=== PATIENT | male | born 1985 | race American Indian/Alaskan Native ===

== ENCOUNTER 2020-09-30 11:59 | Emergency (ER) | payer SELFPAY ==
[2020-09-30] MEDS ORDERED: levETIRAcetam 1000 MG/NS 0.75% 1,000 MG/100 ML BAG IV ONE ×2 (12:29→16:07)
[2020-09-30] MEDS ORDERED: ONDANSETRON 4 MG/2 ML INJ IV ONE (12:44)
--- NOTE | 2020-09-30 13:17 | Emergency Department Report ---
ED Seizure HPI - General Chief Complaint: Seizure Stated Complaint: SEIZURE Time Seen by Provider: 09/30/20 12:24 Source: patient, EMS Mode of arrival: Ambulatory Limitations: No Limitations - History of Present Illness Initial Comments: 34-year-old male with past medical history of 1 seizure in the past presents to the hospital with seizures. Seizure occurred after having sex. He has not followed up or initiated medication since his last seizure. Nurse reports to me that patient was initially talking upon ED arrival. He was asking for a blanket and other things intermittently. Prior to my evaluation. Patient then vomited and became combative with ED staff requiring restraints. The time of my assessment patient is sleeping, arousable, but then goes back to sleep and will not answer any questions or follow commands. Mother also reports that this is the 1 year anniversary of his father's and patient is intermittently crying stating that he is disappointing his family. additional hpi obtained from mom and girlfriend at 4:30pm Thursday were informed of patient's diagnosis and plan for transfer Mom states to her knowledge no previous history of seizures Case discussed with girlfriend/cindy: She states that patient had a dj vu episode 2 months ago which she read could be seizures. Yesterday he complained of a "cluster" headache which improved with [id number] medication. Patient also suspected he had a headache and possible unwitnessed seizure after ejaculating with masturbation. Today while he and girlfriend were having sex after he ejaculated he passed out and seized but was able to speak and was oriented - Related Data Allergies Allergy/AdvReac Type Severity Reaction Status Date / Time No Known Allergies Allergy Unverified 09/30/20 13:27 ED Review of Systems ROS: Stated complaint: SEIZURE Other details as noted in HPI Comment: Unobtainable due to pts medical conditions ED Past Medical Hx - Past Medical History Previous Medical History?: Yes - Surgical History Past Surgical History?: No - Social History Smoking Status: Unknown if ever smoked Substance Use Type: None ED Physical Exam - General Limitations: No Limitations - Other Other exam information: General: No acute distress Head: Atraumatic Eyes: normal appearance ENT: Moist mucous membranes Neck: Normal appearance, no midline tenderness Chest: Clear to auscultation bilaterally CV: Regular rate and rhythm Abdomen: Soft, normal bowel sounds, nontender, nondistended, no rebound or guarding Back: Normal inspection Extremity: Normal inspection, full range of motion Neuro: Drowsy, opens eyes to tactile stimulation, 5/5 upper and lower extremity strength. Initial GCS E3 V4 and 5 = 12 Psych: Intermittently confused, combative, not following commands Skin: No rash ED Course Vital Signs 09/30/20 09/30/20 09/30/20 12:26 12:47 15:55 Temperature 98.1 F Pulse Rate 86 86 Respiratory 18 18 Rate Blood Pressure 138/81 157/104 Blood Pressure 136/82 [Right] O2 Sat by Pulse 100 100 100 Oximetry 09/30/20 16:14 Temperature 98.2 F Pulse Rate 55 L Respiratory 20 Rate Blood Pressure Blood Pressure 148/96 [Right] O2 Sat by Pulse 100 Oximetry - Reevaluation(s) Reevaluation #1: 09/30/20 15:20 Patient was observed for several hours given that he had a seizure for possible prolonged postictal state. Patient received Keppra and Zofran without any further seizure activity. When I went to reassess patient he still remained altered, agitated with snoring respirations and not following commands, and try ing to loosen restraints. GCS E2 V3 and = 10. therefore CT head ordered which shows a brain bleed at this time. I am awaiting CT report. Patient will be prepped for intubation while awaiting radiology callback due to significant CT findings and declining GCS score. - Consultations Consultation #1: 09/30/20 3:48 PM [facility] called. No beds. Will page Dr. Dunne neurosurgeon to see if patient can be accommodate 3:50 PM: Case discussed with [facility] transfer service. At 3:58 PM I was conference with neurosurgeon Dr. Sepulveda and neuro coding analyst Dr. Dow. Recommendation to keep blood pressure less than 160. Amicar not recommended at this time. They have accepted patient pending bed availability 4:03 PM received call back from Dr. Smith neurosurgeon at [facility]. He has accepted patient for to the ED. Recommends 100 g of mannitol, an additional gram of Keppra, and to keep systolic blood pressure less than 140 and recommends Cardene as needed. Case was also discussed with ED attending Dr. Arana - Intubation Time Out Performed: Yes Sedative: Etomidate Mg Given: 20 Paralytic: Rocuronium Mg Given: 120 Laryngoscope: other (glidescope) Size: 4 ET Tube Size: 7.5 Tube Secured Depth (cm): 23 Tube Secured Location: teeth Tube Placement Confirmation: visualized tube passing t, equal breath sounds bilat, no breath sounds over epi, confirmation by capnometr Patient Tolerated Procedure: well Intubation Complications: none Additional Comments: ET tube 1 chest x-ray right at the tip of the ruddy instructed respiratory therapist to pull back to 23 ED Medical Decision Making - Lab Data Result diagrams: 09/30/20 13:08 09/30/20 13:08 Lab Results 09/30/20 09/30/20 09/30/20 Range/Units 12:25 13:08 13:08 WBC 7.0 (4.5-11.0) K/mm3 RBC 5.57 H (3.65-5.03) M/mm3 Hgb 15.0 (11.8-15.2) gm/dl Hct 45.2 (35.5-45.6) % MCV 81 L (84-94) fl MCH 27 L (28-32) pg MCHC 33 (32-34) % RDW 14.1 (13.2-15.2) % Plt Count 181 (140-440) K/mm3 Lymph % (Auto) 42.0 H (13.4-35.0) % [place] % (Auto) 11.2 H (0.0-7.3) % Eos % (Auto) 1.7 (0.0-4.3) % Baso % (Auto) 0.8 (0.0-1.8) % Lymph # (Auto) 2.9 (1.2-5.4) K/mm3 [place] # (Auto) 0.8 (0.0-0.8) K/mm3 Eos # (Auto) 0.1 (0.0-0.4) K/mm3 Baso # (Auto) 0.1 (0.0-0.1) K/mm3 Seg Neutrophils % 44.3 (40.0-70.0) % Seg Neutrophils # 3.1 (1.8-7.7) K/mm3 PT (12.2-14.9) Sec. INR (0.87-1.13) APTT (24.2-36.6) Sec. Sodium 141 (137-145) mmol/L Potassium 3.9 (3.6-5.0) mmol/L Chloride 102.6 (98-107) mmol/L Carbon Dioxide 21 L (22-30) mmol/L Anion Gap 21 mmol/L BUN 10 (9-20) mg/dL Creatinine 0.9 (0.8-1.3) mg/dL Estimated GFR > 60 ml/min BUN/Creatinine Ratio 11 % Glucose 144 H (75-100) mg/dL POC Glucose 125 H (70-105) mg/dL Calcium 9.4 (8.4-10.2) mg/dL Magnesium 1.80 (1.7-2.3) mg/dL 09/30/20 Range/Units 15:46 WBC (4.5-11.0) K/mm3 RBC (3.65-5.03) M/mm3 Hgb (11.8-15.2) gm/dl Hct (35.5-45.6) % MCV (84-94) fl MCH (28-32) pg MCHC (32-34) % RDW (13.2-15.2) % Plt Count (140-440) K/mm3 Lymph % (Auto) (13.4-35.0) % [place] % (Auto) (0.0-7.3) % Eos % (Auto) (0.0-4.3) % Baso % (Auto) (0.0-1.8) % Lymph # (Auto) (1.2-5.4) K/mm3 [place] # (Auto) (0.0-0.8) K/mm3 Eos # (Auto) (0.0-0.4) K/mm3 Baso # (Auto) (0.0-0.1) K/mm3 Seg Neutrophils % (40.0-70.0) % Seg Neutrophils # (1.8-7.7) K/mm3 PT 13.0 (12.2-14.9) Sec. INR 1.00 (0.87-1.13) APTT 28.2 (24.2-36.6) Sec. Sodium (137-145) mmol/L Potassium (3.6-5.0) mmol/L Chloride (98-107) mmol/L Carbon Dioxide (22-30) mmol/L Anion Gap mmol/L BUN (9-20) mg/dL Creatinine (0.8-1.3) mg/dL Estimated GFR ml/min BUN/Creatinine Ratio % Glucose (75-100) mg/dL POC Glucose (70-105) mg/dL Calcium (8.4-10.2) mg/dL Magnesium (1.7-2.3) mg/dL - EKG Data -: EKG Interpreted by Nm EKG shows normal: sinus rhythm, ST-T waves (No STEMI) Rate: bradycardia (58) - Radiology Data Radiology results: report reviewed, image reviewed (Chest x-ray reviewed report not available at time of transfer. ET tube right at the ruddy tip and pulled back from 24-23) NONENHANCED CT SCAN OF THE HEAD: INDICATION / CLINICAL INFORMATION: 34 years Male; seizure, confusion. TECHNIQUE: Routine CT head without contrast. All CT scans at this location are performed using CT dose reduction for ALARA by means of automated exposure control. COMPARISON: None. FINDINGS: BRAIN / INTRACRANIAL CONTENTS: Abnormal MRI scan Significant intraventricular hemorrhage on the right side; subarachnoid hemorrhage; hydrocephalus; appears to be right basal ganglia hemorrhage, Given the age, aneurysm, arteriovenous malformation and drugs would be considerations CRANIOCERVICAL JUNCTION: No significant abnormality. ORBITS: No significant abnormality of visualized orbits. SINUSES / MASTOIDS: No significant abnormality of the visualized paranasal sinuses or mastoid air cells. ADDITIONAL FINDINGS: None. IMPRESSION: Significant ventricular hemorrhage on the right side and diffuse subarachnoid hemorrhage; hydrocephalus - Medical Decision Making 34-year-old male with a past medical history of previous seizure presents to the hospital with a seizure after sexual intercourse. Patient had episode nausea vomiting in the ED. Patient treated with Keppra and Zofran. Patient did require physical restraints due to confusion and combativeness. Due to prolonged postictal state CT head was performed and shows acute hemorrhage with hydrocephalus. Patient intubated for airway protection and just declining GCS with significant CT head findings (GCS declined from 12-10). Patient treated with 2 g of Keppra, Zofran, mannitol, propofol drip for sedation with Cardene on standby for additional BP control as per neurosurgery recommendation Patient's mother and girlfriend were informed of patient's diagnosis and plan for transfer to [facility]. Mother in ED and allowed to come to bedside prior to transfer Critical Care Time: Yes Critical care time in (mins) excluding proc time.: 65 Critical care attestation.: If time is entered above; I have spent that time in minutes in the direct care of this critically ill patient, excluding procedure time. ED Disposition Clinical Impression: Seizure, Post-ictal confusion, Intracerebral hemorrhage, Hydrocephalus, Mental status alteration Disposition: [id number]/TX-[id number] ANOTHER TYPE HLTHCARE Is pt being admited?: No Condition: Stable Referrals: PRIMARY CARE, [Primary Care Provider] - 3-5 Days
[2020-09-30 13:43] LABS: Basophils # (Auto) 0.1 K/mm3 (0.0-0.1); Basophils % (Auto) 0.8 % (0.0-1.8); Eosinophils # (Auto) 0.1 K/mm3 (0.0-0.4); Eosinophils % (Auto) 1.7 % (0.0-4.3); Hematocrit 45.2 % (35.5-45.6); Lymphocytes # (Auto) 2.9 K/mm3 (1.2-5.4); Mean Corpuscular HGB Conc 33 % (32-34); Mean Corpuscular Volume 81 fl (84-94); Monocytes # (Auto) 0.8 K/mm3 (0.0-0.8); Monocytes % (Auto) 11.2 % (0.0-7.3); Platelet Count 181 K/mm3 (140-440); Red Blood Count 5.57 M/mm3 (3.65-5.03); Red Cell Distribution Width 14.1 % (13.2-15.2)
[2020-09-30 14:01] LABS: BUN/Creatinine Ratio 11; Blood Urea Nitrogen 10 mg/dL (9-20); Calcium 9.4 mg/dL (8.4-10.2); Hemolysis Index 95
[2020-09-30] MEDS ORDERED: LORazepam 2 MG/ML VIAL ONE (15:02)
[2020-09-30] MEDS ORDERED: ROCURONIUM 50 MG/5 ML INJ IV ONE ×3 (15:23→15:30)
[2020-09-30] MEDS ORDERED: ETOMIDATE 20 MG/10 ML INJ IV ONE (15:30)
--- NOTE | 2020-09-30 15:39 | Cat Scan Report ---
NONENHANCED CT SCAN OF THE HEAD: INDICATION / CLINICAL INFORMATION: 34 years Male; seizure, confusion. TECHNIQUE: Routine CT head without contrast. All CT scans at this location are performed using CT dos e reduction for ALARA by means of automated exposure control. COMPARISON: None. FINDINGS: BRAIN / INTRACRANIAL CONTENTS: Abnormal MRI scan Significant intraventricular hemorrhage on the right side; subarachnoid hemorrhage; hydrocephalus; ap pears to be right basal ganglia hemorrhage, Given the age, aneurysm, arteriovenous malformation and drugs would be considerations CRANIOCERVICAL JUNCTION: No significant abnormality. ORBITS: No significant abnormality of visualized orbits. SINUSES / MASTOIDS: No significant abnormality of the visualized paranasal sinuses or mastoid air pilar ls. ADDITIONAL FINDINGS: None. IMPRESSION: Significant ventricular hemorrhage on the right side and diffuse subarachnoid hemorrhage; hydrocephal us CODE STROKE: Time of Communication (TELEPHONE APPOINTMENT CLERK/CDT): 2:33 PM Licensed Practitioner Receiving Report: ER physician Signer Name: Denny Baptiste MD Signed: 09/30/2020 3:35 PM Workstation Name: [email or web address]
[2020-09-30] MEDS ORDERED: MANNITOL 20% 500 ML IV ONE (16:06)
[2020-09-30 16:24] VITALS: BP 157/104
[2020-09-30 16:25] LABS: Partial Thromboplastin Time 28.2 Sec. (24.2-36.6)
[2020-09-30] MEDS ORDERED: niCARdipine DRIP 40 MG/200 ML BAG ONE (16:46)
[2020-09-30] MEDS ORDERED: niCARdipine DRIP 40 MG/200 ML BAG IV ONE (16:57)
[2020-09-30] MEDS ORDERED: niCARdipine 50 MG in SODIUM CHLORIDE 0.9% 250ML 230 ML IV SCH (17:00)
--- NOTE | 2020-09-30 17:16 | XRay Report ---
CHEST 1 VIEW INDICATION / CLINICAL INFORMATION: post intubation. COMPARISON: None available. FINDINGS: SUPPORT DEVICES: Endotracheal tube HEART / MEDIASTINUM: No significant abnormality. LUNGS / PLEURA: No significant pulmonary or pleural abnormality. No pneumothorax. ADDITIONAL FINDINGS: No significant additional findings. IMPRESSION: Endotracheal tube is present with the tip approximately 2 cm above the ruddy. No acute pulmonary or pleural abnormality Signer Name: Ralph Scherer MD FACAvila Signed: 09/30/2020 5:12 PM Workstation Name: [id number]
[2020-09-30] MEDS ORDERED: LORazepam 2 MG/ML VIAL IV ONE (18:00)
== END 2020-09-30 18:01 | disposition other institution (70) ==
LOC: ED 11:59
DX: I61.9 Nontraumatic intracerebral hemorrhage, unspecified (principal); G91.9 Hydrocephalus, unspecified; R41.82 Altered mental status, unspecified
CPT/HCPCS: 31500; 36415; 70450; 71045; 80048; 82805; 82962; 83735; 85025; 85610; 85730; 87205; 93005; 94002; 96365; 96366; 96368; 96375; 96376; 99291; J1953; J2060; J2150; J2405; J2704; J7050